=== PATIENT | male | born 1955 | race Caucasian/White ===

== ENCOUNTER 2019-02-20 15:25 | Inpatient (IN) | payer BC ==
[2019-02-20] MEDS ORDERED: IPRATROPIUM BROM 0.5MG/2.5ML ONE (15:32)
[2019-02-20] MEDS ORDERED: METHYLPREDNISOLONE 125 MG INJ ONE (15:32)
[2019-02-20] MEDS ORDERED: ALBUTEROL 2.5 MG/3 ML NEB SOL ONE (15:32)
--- NOTE | 2019-02-20 16:09 | RAD REPORT ---
EXAM DESCRIPTION: RAD - Abdomen Acute Series - 02/20/2019 4:01 pm CLINICAL HISTORY: ABD PAIN COMPARISON: No comparisons FINDINGS: Multiple poorly defined airspace opacities in the left lung noted suspicious for pneumonia /aspiration. The right lung is clear. The heart is normal in size. No subdiaphragmatic free air seen. No evidence bowel obstruction. No pathologic calcifications. No ag gressive marrow lesion. IMPRESSION: Several poorly defined airspace opacities in the left lung likely represent aspiration p neumonia.
[2019-02-20 16:14] LABS: Absolute Lymphocytes (CBC) 1.5 K/uL (0.7-4.9); Basophils % 0.2 % (0-1.3); Hematocrit 52.5 % (39.6-49.0); Lymphocytes % 8.4 % (15.3-44.8); MPV 9.8 fL (7.6-11.3); RBC Red Blood Cell Count 5.64 M/uL (4.33-5.43)
--- NOTE | 2019-02-20 16:25 | RAD REPORT ---
EXAM DESCRIPTION: CT - Angio Aorta For Dissection - 02/20/2019 4:12 pm CLINICAL HISTORY: Chest pain radiating to the back. DYSPNEA COMPARISON: No comparisons TECHNIQUE: CT angiography of the aorta was performed with MIPs. All CT scans are performed using dose optimization technique as appropriate and may include automated exposure control or mA/KV adjustment according to patient size. FINDINGS: A left aortic arch is present with normal branching pattern of the great vessels.No acute aortic finding is seen such as aneurysm, penetrating ulcer or dissection. The celiac axis, SMA, ABRAHAM and renal arteries demonstrate mild ostial plaquing but are patent. No evidence of pulmonary embolism. Patchy airspace opacities are present in the left lung most compatible with pneumonia, possibly relat ed to recent aspiration. The liver demonstrates no focal mass or biliary dilatation.The spleen, pancreas, adrenal glands and k idneys are within normal limits for arterial phase imaging. No bowel obstruction, free fluid or abscess.Sigmoid diverticulosis coli without diverticulitis.No pat hologic enlarged lymphadenopathy identified. No fracture or worrisome bone lesion seen. IMPRESSION: No acute aortic finding is demonstrated. Moderately severe left lung aspiration pneumonia.
[2019-02-20] MEDS ORDERED: CEFEPIME 1 GM/100 ML BAG IV ONE (16:28)
[2019-02-20 16:32] LABS: Blood Morphology Comment NOT SEEN (NOT SEEN); Platelet Estimate ADEQ; Urine White Blood Cell Casts OK
[2019-02-20] MEDS ORDERED: NA CHLORIDE 0.9% 2,000 ML ONE (16:36)
[2019-02-20 16:43] LABS: Arterial Blood Carboxyhemoglob 0.6 % (0-1.5); Blood Gas Oxyhemoglobin 97.9 % (94-97)
[2019-02-20] MEDS ORDERED: ACETAMINOPHEN 650MG/RECT SUPP PR ONE (16:43)
[2019-02-20] MEDS ORDERED: ACETAMINOPHEN 325 MG/SUPP PR ONE (16:44)
[2019-02-20 16:49] LABS: ALT/SGPT 31 U/L (12-78); AST/SGOT 28 U/L (15-37); Albumin 4.2 g/dL (3.4-5.0); Alkaline Phosphatase 77 U/L (45-117); BUN Blood Urea Nitrogen 18 mg/dL (7-18); Bicarbonate 27 mmol/L (21-32); Bilirubin Direct 0.1 mg/dL (0-0.2); Bilirubin Total 0.5 mg/dL (0.2-1.0); CKMB Creatine Kinase MB 1.7 ng/mL (0.3-3.6); Creatine Phosphokinase 106 U/L (39-308); Glucose Level 145 mg/dL (74-106); Lipase 64 U/L (73-393); Potassium 4.2 mmol/L (3.5-5.1); Sodium Level 139 mmol/L (136-145); Troponin (Emerg Dept Use Only) < 0.02 ng/mL (0.0-0.045)
[2019-02-20 16:58] LABS: Protime INR 1.01
[2019-02-20] MEDS ORDERED: VANCOMYCIN 2 GM in NA CHLORIDE 0.9% 500 ML IVPB ONE (17:00)
--- NOTE | 2019-02-20 17:15 | EDPHYS ---
Physician Documentation [facility] Name: Andrew Vallejo Age: 63 yrs Sex: Male : 1955 Arrival Date: 02/20/2019 Time: 15:28 Bed 2 Private MD: ED Physician Reji Ames HPI: 02/20 17:07 This 63 yrs old Male presents to ER via Wheelchair with complaints of jr8 Breathing Difficulty, Vomiting. 17:07 The patient has shortness of breath at rest. Onset: The symptoms/episode began/occurred jr8 acutely, today. Duration: The symptoms are continuous. The patient's shortness of breath is aggravated by light activity, talking, walking. Associated signs and symptoms: Pertinent positives: non-productive cough. Severity of symptoms: At their worst the symptoms were severe in the emergency department the symptoms are unchanged. The patient has not experienced similar symptoms in the past. The patient has been recently seen by a physician:. Patient stated that he had colonoscopy today. Stated that they told him that he aspirated while being intubated. Stated that since then has been dramatically getting worse. Patient came in hypoxic with peripheral cyanosis and perioral cyanosis with audible wheezing . Historical: - Allergies: 15:52 No Known Allergies; iw - PMHx: 15:52 Hypertension; Hyperlipidemia; iw - PSHx: 15:52 None; iw - Immunization history:: Adult Immunizations unknown. - Ebola Screening: : Patient negative for fever greater than or equal to 101.5 degrees Fahrenheit, and additional compatible Ebola Virus Disease symptoms Patient denies exposure to infectious person Patient denies travel to an Ebola-affected area in the 21 days before illness onset No symptoms or risks identified at this time. - Social history:: Smoking status: unknown. ROS: 17:07 Eyes: Negative for injury, pain, redness, and discharge, ENT: Negative for injury, jr8 pain, and discharge, Neck: Negative for injury, pain, and swelling, Cardiovascular: Negative for chest pain, palpitations, and edema, Abdomen/GI: Negative for abdominal pain, nausea, vomiting, diarrhea, and constipation, Back: Negative for injury and pain, MS/Extremity: Negative for injury and deformity, Skin: Negative for injury, rash, and discoloration, Neuro: Negative for headache, weakness, numbness, tingling, and seizure. 17:07 Respiratory: Positive for cough, dyspnea on exertion, shortness of breath, wheezing. Exam: 17:07 Eyes: Pupils equal round and reactive to light, extra-ocular motions intact. Lids and jr8 lashes normal. Conjunctiva and sclera are non-icteric and not injected. Cornea within normal limits. Periorbital areas with no swelling, redness, or edema. ENT: Nares patent. No nasal discharge, no septal abnormalities noted. Tympanic membranes are normal and external auditory canals are clear. Oropharynx with no redness, swelling, or masses, exudates, or evidence of obstruction, uvula midline. Mucous membranes moist. Neck: Trachea midline, no thyromegaly or masses palpated, and no cervical lymphadenopathy. Supple, full range of motion without nuchal rigidity, or vertebral point tenderness. No Meningismus. Abdomen/GI: Soft, non-tender, with normal bowel sounds. No distension or tympany. No guarding or rebound. No evidence of tenderness throughout. Back: No spinal tenderness. No costovertebral tenderness. Full range of motion. Skin: Warm, dry with normal turgor. Normal color with no rashes, no lesions, and no evidence of cellulitis. MS/ Extremity: Pulses equal, no cyanosis. Neurovascular intact. Full, normal range of motion. Neuro: Awake and alert, GCS 15, oriented to person, place, time, and situation. Cranial nerves II-XII grossly intact. Motor strength 5/5 in all extremities. Sensory grossly intact. Cerebellar exam normal. Normal gait. 17:07 Cardiovascular: Rate: tachycardic, Rhythm: regular, Pulses: Pulses are 2+ in right radial artery and left radial artery. Heart sounds: normal, normal S1and S2, no S3 or S4, no murmur, no rub, no gallop, Edema: is not appreciated. 17:07 Respiratory: moderate respiratory distress is noted, Respirations: labored breathing, tachypnea, Breath sounds: wheezing: expiratory that is moderate, is heard diffusely. Vital Signs: 15:45 BP 171 / 88; Pulse 136; Resp 36 S; Temp 99(A); Pulse Ox 87% on R/A; Weight 74.84 kg (R);iw 16:17 BP 146 / 74; Pulse 134; Resp 35 S; Pulse Ox 100% on Nebulizer Mask; iw 16:30 BP 143 / 83; Pulse 136; Resp 28; Pulse Ox 100% on BiPAP; jl7 16:41 Temp 103.5(R); ss 17:22 BP 125 / 86; Pulse 136; Resp 25 S; Pulse Ox 100% on BiPAP; iw 18:14 BP 128 / 80; Pulse 122; Resp 25 S; Temp 100.7(TE); Pulse Ox 95% on 5 lpm NC; Pain 0/10; iw 20:00 BP 101 / 53; Pulse 81; Resp 20 S; Pulse Ox 100% on 5 lpm NC; Pain 0/10; jd3 MDM: 15:51 Patient medically screened. jr8 17:05 Antibiotic administration: Vanc Cefepime . Data reviewed: vital signs, nurses notes, jr8 lab test result(s), EKG, radiologic studies, CT scan, plain films. Data interpreted: Pulse oximetry: on room air is 87 %. Interpretation: hypoxia. Counseling: I had a detailed discussion with the patient and/or guardian regarding: the historical points, exam findings, and any diagnostic results supporting the discharge/admit diagnosis, lab results, radiology results, the need for further work-up and treatment in the hospital. ED course: Dr. Motta consulted for admission and will see patient in ED . 02/20 15:46 Order name: ABG; Complete Time: 16:49 [facility] 02/20 15:46 Order name: Basic Metabolic Panel [facility] 02/20 15:46 Order name: Blood Culture Adult (2) [facility] 02/20 15:46 Order name: CBC with Diff; Complete Time: 16:43 [facility] 02/20 15:46 Order name: Ckmb; Complete Time: 16:50 [facility] 02/20 15:46 Order name: CPK; Complete Time: 16:50 [facility] 02/20 15:46 Order name: Lactate; Complete Time: 17:14 [facility] 02/20 15:46 Order name: LFT's; Complete Time: 16:50 [facility] 02/20 15:46 Order name: Lipase; Complete Time: 16:50 [facility] 02/20 15:46 Order name: Procalcitonin; Complete Time: 17:33 [facility] 02/20 15:46 Order name: Protime (+inr); Complete Time: 17:14 [facility] 02/20 15:46 Order name: Ptt, Activated; Complete Time: 17:14 7 02/20 15:46 Order name: Troponin (emerg Dept Use Only); Complete Time: 16:50 7 02/20 15:46 Order name: Urine Microscopic Only 7 02/20 15:51 Order name: CT Aorta for Dissection; Complete Time: 16:43 7 02/20 15:51 Order name: Basic Metabolic Panel; Complete Time: 16:50 EDMS 02/20 15:51 Order name: Blood Culture EDFL 02/20 15:52 Order name: XRAY Abdomen Acute Series; Complete Time: 16:25 [facility] 02/20 16:00 Order name: BNP; Complete Time: 16:43 [facility] 02/20 16:07 Order name: Glucose, Ancillary Testing; Complete Time: 16:09 EDMS 02/20 16:33 Order name: CBC Smear Scan; Complete Time: 16:43 EDMS 02/20 20:01 Order name: Lactate Sepsis 2 HR Follow-up EDFL 02/20 15:46 Order name: Accucheck; Complete Time: 15:57 7 02/20 15:46 Order name: Cardiac monitoring; Complete Time: 15:57 7 02/20 15:46 Order name: EKG - Nurse/Tech; Complete Time: 16:20 7 02/20 15:46 Order name: IV Saline Lock - Large Bore; Complete Time: 16:20 7 02/20 15:46 Order name: Labs collected and sent; Complete Time: 16:20 7 02/20 15:46 Order name: O2 Per Protocol; Complete Time: 16:20 [facility] 02/20 15:46 Order name: O2 Sat Monitoring; Complete Time: 16:43 jl7 Administered Medications: 15:35 Drug: Albuterol - atroVENT (3:1) (2.5 mg - 0.5 mg) 3 ml Route: Nebulizer; iw 18:21 Follow up: Response: No adverse reaction; Marked relief of symptoms iw 15:47 Drug: SOLU-Medrol 125 mg Route: IVP; Site: right wrist; iw 18:21 Follow up: Response: Marked relief of symptoms iw 16:35 Drug: NS 0.9% (30 ml/kg) 30 ml/kg Route: IV; Rate: bolus; Site: left jugular; ss 20:07 Follow up: Response: No adverse reaction; IV Status: Completed infusion jd3 16:35 Drug: Cefepime 1 grams Route: IVPB; Rate: 200 ml/hr; Infused Over: 30 mins; Site: right ss wrist; 17:05 Follow up: IV Status: Completed infusion iw 16:37 Drug: vancoMYCIN 2 grams Route: IVPB; Rate: calculated rate; Site: left jugular; ss 20:06 Follow up: Response: No adverse reaction; IV Status: Completed infusion jd3 16:51 Drug: Tylenol Suppository 1000 mg Route: VA; jl7 18:21 Follow up: Response: Temperature is decreased iw 17:35 Drug: Clindamycin 600 mg Route: IVPB; Infused Over: 30 mins; Site: right wrist; iw 18:05 Follow up: IV Status: Completed infusion iw Point of Care Testing: Blood Glucose: 15:56 Blood Glucose: 119 mg/dL; iw Ranges: Critical Glucose Levels:Adult <50 mg/dl or >400 mg/dl <40 mg/dl or >180 mg/dl Disposition: 17:12 Critical Care:. jr8 02/21 09:02 Co-signature as Attending Physician, Reji Ames MD I agree with the assessment and ps1 plan of care. PA/C[employer]'s history reviewed, patient interviewed, and examined. Attestation: The patient's history, exam findings, diagnostics, and a summary of any interventions or procedures was reviewed in detail with Cole AGUIRRE. Disposition: 02/20/19 17:14 Hospitalization ordered by Sb Motta for Inpatient Admission. Preliminary diagnosis are Acute respiratory failure with hypercapnia, Severe sepsis without septic shock, Aspiration Pneumonia . - Bed requested for Intensive Care Unit. - Status is Inpatient Admission. jd3 - Condition is Fair. - Problem is new. - Symptoms have improved. UTI on Admission? No Critical care time excluding procedures: 02/20 17:12 Critical care time: Bedside Care: 20 minutes, Consultation: 10 minutes, Family jr8 Intervention: 10 minutes. Total time: 40 minutes Signatures: Dispatcher [employer] EDDenia Bradley Irene, RN Ana Talley RN RN ss Roszak, Josh, PA PA jr8 Delmy Lucio RN RN jl7 Davies, Jonathon, RN RN jd3 Singer, Phillip, MD MD ps1 Corrections: (The following items were deleted from the chart) 16:00 15:53 Chest Single View+RAD.RAD.BRZ ordered. EDMS EDMS 18:43 17:14 Hospitalization Ordered by Sb Motta for Inpatient Admission. Preliminary bd diagnosis is Acute respiratory failure with hypercapnia; Severe sepsis without septic shock; Aspiration Pneumonia . Bed requested for Intensive Care Unit. Status is Inpatient Admission. Condition is Fair. Problem is new. Symptoms have improved. UTI on Admission? No. jr8 20:23 18:43 02/20/2019 17:14 Hospitalization Ordered by Sb Motta for Inpatient jd3 Admission. Preliminary diagnosis is Acute respiratory failure with hypercapnia; Severe sepsis without septic shock; Aspiration Pneumonia . Bed requested for Intensive Care Unit. Status is Inpatient Admission. Condition is Fair. Problem is new. Symptoms have improved. UTI on Admission? No. bd
--- NOTE | 2019-02-20 17:15 | ER ---
Nurse's Notes [facility] Name: Andrew Vallejo Age: 63 yrs Sex: Male : 1955 Arrival Date: 02/20/2019 Time: 15:28 Bed 2 Private MD: Diagnosis: Acute respiratory failure with hypercapnia;Severe sepsis without septic shock;Aspiration Pneumonia Presentation: 02/20 15:35 Presenting complaint: Patient states: SOB s/p colonoscopy this morning with Dr. Josue, iw pt then stood up and vomited large amount of clear liquid, pt states he was told he aspirated during the procedure, pt arrives to ER extremely SOB, RT called to bed 2 for Bipap,pt skin appears mottled. 15:49 Transition of care: patient was not received from another setting of care. Onset of iw symptoms was February 20, 2019. Risk Assessment: Do you want to hurt yourself or someone else? Patient reports no desire to harm self or others. Initial Sepsis Screen: Does the patient meet any 2 criteria? RR > 20 per min. HR > 90 bpm. Does the patient have a suspected source of infection? Yes: Other: SOB. Care prior to arrival: None. 15:49 Method Of Arrival: Wheelchair iw 15:49 Acuity: EBENEZER 1 iw Triage Assessment: 20:06 Respiratory: Onset: The symptoms/episode began/occurred just prior to arrival, the jd3 patient has mild shortness of breath. Historical: - Allergies: 15:52 No Known Allergies; iw - PMHx: 15:52 Hypertension; Hyperlipidemia; iw - PSHx: 15:52 None; iw - Immunization history:: Adult Immunizations unknown. - Ebola Screening: : Patient negative for fever greater than or equal to 101.5 degrees Fahrenheit, and additional compatible Ebola Virus Disease symptoms Patient denies exposure to infectious person Patient denies travel to an Ebola-affected area in the 21 days before illness onset No symptoms or risks identified at this time. - Social history:: Smoking status: unknown. Screenin:59 Abuse screen: Denies threats or abuse. Denies injuries from another. Nutritional iw screening: No deficits noted. Tuberculosis screening: No symptoms or risk factors identified. Fall Risk IV access (20 points). 18:15 Patient has been NPO before screening. The patient is alert, able to follow commands. jl7 The patient does not exhibit slurred or garbled speech The patient is not exhibiting difficulty speaking. The patient does not exhibit difficulty understanding words. The patient is able to swallow own secretions with no drooling or need for suction. Patient tolerated one teaspoon of water. No drooling, immediate coughing, gurgling, or clearing of the throat was noted. The patient tolerated 90mL of water. No drooling, immediate coughing, gurgling, or clearing of the throat was noted. The patient passed the bedside swallow screening. Oral medications may be given as ordered. Contact Physician for further diet orders. Provider notified of bedside swallow screening results: Sb Motta. Assessment: 15:40 General: Appears distressed, uncomfortable, ill, Behavior is cooperative, anxious. iw Neuro: Level of Consciousness is awake, alert, obeys commands, Oriented to person, place, time, situation, Moves all extremities. Cardiovascular: Rhythm is sinus tachycardia. Respiratory: Airway is patent Respiratory effort is labored, with nasal flaring, pursed lip, using tripod position, Respiratory pattern is symmetrical, tachypnea Breath sounds are diminished bilaterally. GI: Abdomen is non-distended, Reports vomiting. Derm: Skin is intact, Skin is mottled. Musculoskeletal: Range of motion: intact in all extremities. 15:58 Reassessment: Pt to CT VIA stretcher, on monitor with JAILENE Brock Spoke with Staff ss member at GI center who reports that patient was given Propofol during procedure during sedation, and afterwards given Augmentin for prevention of aspiration pneumonia. 16:23 Reassessment: pt now on BiPAP, still tachypneic and tachycardic at this time, 100% on iw Bipap, at bedside, skin color has improved, pink, warm. 18:15 Reassessment: Patient appears in no apparent distress at this time. Patient and/or iw family updated on plan of care and expected duration. Pain level reassessed. Patient is alert, oriented x 3, equal unlabored respirations, skin warm/dry/pink. pt taken off of BiPAP by Dr. Motta, placed on NC at 5 L/min, SpO2 at 95%, pt pink, warm dry, tqkt=432/7 temporal , pt states he's feeling better, remains at bedside. 19:30 General: Appears in no apparent distress. comfortable, Behavior is calm, cooperative, jd3 appropriate for age. 19:30 Pain: Denies pain. Neuro: Level of Consciousness is awake, alert, obeys commands, jd3 Oriented to person, place, time, situation. Cardiovascular: Denies chest pain, Capillary refill < 3 seconds Patient's skin is warm and dry. Respiratory: Airway is patent Respiratory effort is even, unlabored, Respiratory pattern is regular, symmetrical. GI: No signs and/or symptoms were reported involving the gastrointestinal system. : No signs and/or symptoms were reported regarding the genitourinary system. EENT: No signs and/or symptoms were reported regarding the EENT system. Derm: Skin is intact, Skin is dry, Skin is normal, Skin temperature is warm. Musculoskeletal: Circulation, motion, and sensation intact. Range of motion: intact in all extremities. 19:31 Reassessment: repeat lactate sent. ak1 Vital Signs: 15:45 BP 171 / 88; Pulse 136; Resp 36 S; Temp 99(A); Pulse Ox 87% on R/A; Weight 74.84 kg (R);iw 16:17 BP 146 / 74; Pulse 134; Resp 35 S; Pulse Ox 100% on Nebulizer Mask; iw 16:30 BP 143 / 83; Pulse 136; Resp 28; Pulse Ox 100% on BiPAP; jl7 16:41 Temp 103.5(R); ss 17:22 BP 125 / 86; Pulse 136; Resp 25 S; Pulse Ox 100% on BiPAP; iw 18:14 BP 128 / 80; Pulse 122; Resp 25 S; Temp 100.7(TE); Pulse Ox 95% on 5 lpm NC; Pain 0/10; iw 20:00 BP 101 / 53; Pulse 81; Resp 20 S; Pulse Ox 100% on 5 lpm NC; Pain 0/10; jd3 ED Course: 15:28 Patient arrived in ED. mr 15:35 Patient has correct armband on for positive identification. Placed in gown. Bed in low jl7 position. Call light in reach. Side rails up X2. 15:35 monitor car operator on. Pulse ox on. NIBP on. jl7 15:40 Missed attempt(s): 20 gauge in right antecubital area. iw 15:45 Arm band placed on right wrist. jl7 15:47 Inserted saline lock: 18 gauge in right EJ, using aseptic technique. Blood collected. iw IV inserted by TIMOTHY Galvan. 15:47 Inserted saline lock: 22 gauge in right wrist, using aseptic technique. iw 15:50 Triage completed. iw 15:51 Cole Anne PA is PHCP. jr8 15:51 Reji Ames MD is Attending Physician. jr8 15:56 Justa Osei, JAILENE is Primary Nurse. iw 16:02 XRAY Abdomen Acute Series In Process Unspecified. EDMS 16:11 CT completed. Patient tolerated procedure well. Patient moved to CT. Patient moved back or from CT. 16:12 CT Aorta for Dissection In Process Unspecified. EDMS 17:13 Sb Motta is Hospitalizing Provider. jr8 20:05 No provider procedures requiring assistance completed. Patient admitted, IV remains in jd3 place. Administered Medications: 15:35 Drug: Albuterol - atroVENT (3:1) (2.5 mg - 0.5 mg) 3 ml Route: Nebulizer; iw 18:21 Follow up: Response: No adverse reaction; Marked relief of symptoms iw 15:47 Drug: SOLU-Medrol 125 mg Route: IVP; Site: right wrist; iw 18:21 Follow up: Response: Marked relief of symptoms iw 16:35 Drug: NS 0.9% (30 ml/kg) 30 ml/kg Route: IV; Rate: bolus; Site: left jugular; ss 20:07 Follow up: Response: No adverse reaction; IV Status: Completed infusion jd3 16:35 Drug: Cefepime 1 grams Route: IVPB; Rate: 200 ml/hr; Infused Over: 30 mins; Site: right ss wrist; 17:05 Follow up: IV Status: Completed infusion iw 16:37 Drug: vancoMYCIN 2 grams Route: IVPB; Rate: calculated rate; Site: left jugular; ss 20:06 Follow up: Response: No adverse reaction; IV Status: Completed infusion jd3 16:51 Drug: Tylenol Suppository 1000 mg Route: AR; jl7 18:21 Follow up: Response: Temperature is decreased iw 17:35 Drug: Clindamycin 600 mg Route: IVPB; Infused Over: 30 mins; Site: right wrist; iw 18:05 Follow up: IV Status: Completed infusion iw Point of Care Testing: Blood Glucose: 15:56 Blood Glucose: 119 mg/dL; iw Ranges: Outcome: 17:14 Decision to Hospitalize by Provider. jr8 20:05 Admitted to ICU accompanied by nurse, via stretcher, room 2, with oxygen, on monitor, jd3 with chart, Report called to Tasha DENT 20:05 Condition: stable 20:05 Instructed on the need for admit, Demonstrated understanding of instructions. 20:23 Patient left the ED. jd3 Signatures: Dispatcher [employer] EDAL Andreina Chen Justa Osei, RN RN iw Ana Webber, RN RN ss Cole Anne PA PA jr8 Brittani Meek RN RN ak1 Jorge Smiley Jahala RN RN jl7 Zev Aponte RN RN jd3 Corrections: (The following items were deleted from the chart) 16:00 15:45 BP 171 / 88; Pulse 136bpm; Resp 36bpm; Spontaneous; Pulse Ox 87% RA; Temp 99F iw Axillary; jl7 16:23 15:45 BP 171 / 88; Pulse 136bpm; Resp 36bpm; Spontaneous; Pulse Ox 87% RA; Temp 99F iw Axillary; 83.91 kg Reported; iw 16:24 16:23 Reassessment: pt now on BiPAP, still tachypneic and tachycardic at this time, iw 100% on Bipap, at bedside iw 18:15 15:45 BP 171 / 88; Pulse 136bpm; Resp 36bpm; Spontaneous; Pulse Ox 87% RA; Temp 99F iw Axillary; 65.77 kg Measured; iw
[2019-02-20] MEDS ORDERED: CLINDAMYCIN 600MG/D5W 600 MG/50 ML BAG IV ONE (17:30)
--- NOTE | 2019-02-20 18:00 | P.HP ---
Certification for Inpatient Patient admitted to: Inpatient With expected LOS: >2 Midnights Practitioner: I am a practitioner with admitting privileges, knowledge of patient current condition, hospital course, and medical plan of care. Services: Services provided to patient in accordance with Admission requirements found in Title 42 Section 412.3 of the Code of Federal Regulations Patient History Date of Service: 02/23/19 Reason for admission: Shortness of breath, fever and chills. History of Present Illness: 63-year-old gentleman with a history of hypertension and hyperlipidemia presented to the emergency department due to a complaint of shortness of breath , cough, fever and chills. Patient had a screening colonoscopy done this morning. He was noted to have aspirated his secretions during the procedure. Patient stated he was monitored after the procedure and later discharged home with Augmentin. Patient stated he developed fever, chills and rigors and became very short of breath. He presented to the emergency department where patient was noted to be hypoxic on room air. He was febrile with temperature up to 103 in the ED. Blood work demonstrated severe leukocytosis, patient was tachycardic and lactic acid markedly elevated. CT chest demonstrated opacities in the left lung suggestive of aspiration pneumonia. He meets criteria for sepsis. Patient was on BiPAP therapy during my examination. Arterial blood gas on the BiPAP demonstrated mild CO2 retention and PaO2 of 170. He is currently tolerating oxygen by nasal cannula at 5 L per min. Patient is admitted for further management of aspiration pneumonia. Allergies No Known Allergies Allergy (Verified 02/20/19 21:06) Home Medications: Lisinopril 10 mg PO DAILY 02/20/19 Multivit-Mins/Iron/Folic/Lycop [Centrum Men's Tablet] 1 tab PO DAILY 02/20/19 Pravastatin Sodium [Pravachol] 20 mg PO DAILY 02/20/19 Amox/Clavulanate [Augmentin 875-125 Tab] 1 each PO BID #14 tab 02/21/19 Fluticasone/Salmeterol [Advair 250-50 Diskus] 1 each IH BID #60 blst.w.dev 02/21 - Past Medical/Surgical History Diabetic: No -: Hypertension -: Hyperlipidemia Past Surgical History: Patient denies surgical history - Family History Mother -: Cancer - Social History Smoking Status: Never smoker Alcohol use: Yes CD- Drugs: No Review of Systems Other: General: No unintentional weight loss. Eyes: No eye discharge, CVS: No chest pain, no palpitation, no lightheadedness. GI: No abdominal pain, no nausea no vomit, no constipation, no diarrhea. Genitourinary: No dysuria, no urinary frequency, no incontinence, no hematuria. Musculoskeletal: No joint pains, or joint swelling, no gait instability. Neurology: No headache, no asymmetric, weakness, no problem with swallowing. Except as documented, all other systems reviewed and negative. Physical Examination - Physical Exam General: Alert, In no apparent distress, Oriented x3 HEENT: PERRLA, Mucous membr. moist/pink, Sclerae nonicteric Neck: Supple, JVD not distended Respiratory: Normal air movement, Crackles/rales (Left lung), Expiratory wheezes (Mild scattered wheezes) Cardiovascular: No edema, Normal pulses, Normal S1 S2, Other (Tachycardic) Capillary refill: <2 Seconds Gastrointestinal: Normal bowel sounds, Soft and benign, Non-distended, No tenderness Musculoskeletal: No swelling Integumentary: No rashes Neurological: Normal speech, Normal strength at 5/5 x4 extr - Studies Laboratory Data (last 24 hrs) 02/20/19 16:37: PT 11.9, INR 1.01, APTT 18.6 L 02/20/19 15:45: WBC 18.4 H, Hgb 17.0, Hct 52.5 H, Plt Count 256 02/20/19 15:45: Sodium 139, Potassium 4.2, BUN 18, Creatinine 1.47 H, Glucose 145 H, Total Bilirubin 0.5, AST 28, ALT 31, Alkaline Phosphatase 77, Lipase 64 L Assessment and Plan - Problems (Diagnosis) (1) Sepsis Status: Acute (2) Aspiration pneumonia Status: Acute Qualifiers: Laterality: left (3) Acute respiratory failure with hypoxemia Status: Acute (4) Hypertension Status: Acute - Plan Admit to ICU Continue oxygen by nasal cannula. Intermittent BiPAP as needed Treats with IV Zosyn and levaquin Start IV methylprednisolone Titrate oxygen Chest physiotherapy Hold antihypertensives for now Bedside swallow evaluation after which patient can be started on a diet if he tolerate it. - Advance Directives Does patient have a Living Will: No Does patient have a Durable POA for Healthcare: No
[2019-02-20] MEDS ORDERED: NA CHLORIDE 0.9% 1,000 ML IV SCH (20:50)
[2019-02-20] MEDS ORDERED: ONDANSETRON 4 MG/2 ML VIAL IV PRN (20:50)
[2019-02-20] MEDS ORDERED: ACETAMINOPHEN 500 MG TAB PO PRN (20:50)
[2019-02-20] MEDS: ALBUTEROL 2.5 MG/3 ML NEB SOL NEB SCH (20:55)
[2019-02-20] MEDS: IPRATROPIUM BROM 0.5MG/2.5ML NEB SCH (20:55)
[2019-02-20 21:05] VITALS: BMI 28.5
[2019-02-20] MEDS ORDERED: Levofloxacin 750mg IV 750 MG/150 ML BAG IV SCH (22:00)
[2019-02-20] MEDS ORDERED: PIPERACIL/TAZO 3.375 GM VIAL IV ONE (23:48)
[2019-02-20] MEDS ORDERED: NA CHLORIDE 0.9% 100 ML ONE (23:48)
[2019-02-21] MEDS: METHYLPREDNISOLONE 40 MG INJ IV SCH ×2 (00:04→08:08)
[2019-02-21] MEDS: IPRATROPIUM BROM 0.5MG/2.5ML NEB SCH ×3 (02:05→14:00)
[2019-02-21] MEDS: ALBUTEROL 2.5 MG/3 ML NEB SOL NEB SCH ×3 (02:05→14:00)
[2019-02-21 05:10] LABS: Absolute Lymphocytes (CBC) 0.3 K/uL (0.7-4.9); Basophils % 0.2 % (0-1.3); Lymphocytes % 1.4 % (15.3-44.8); MPV 9.4 fL (7.6-11.3); RBC Red Blood Cell Count 4.44 M/uL (4.33-5.43)
[2019-02-21 05:34] LABS: Magnesium 1.9 mg/dL (1.8-2.4); Phosphorus 2.7 mg/dL (2.5-4.9); Potassium 4.5 mmol/L (3.5-5.1)
[2019-02-21] MEDS ORDERED: PIPERACIL/TAZO 3.375 GM VIAL IV ONE (05:44)
[2019-02-21] MEDS ORDERED: NA CHLORIDE 0.9% 100 ML ONE (05:45)
[2019-02-21] MEDS: PIPER/TAZO/NS 3.375gm 3.375 GM/100 ML BAG IVPB SCH ×2 (06:00)
[2019-02-21 06:58] LABS: Blood Morphology Comment NOT SEEN (NOT SEEN); Platelet Estimate ADEQ
[2019-02-21 07:57] VITALS: O2SAT 93
--- NOTE | 2019-02-21 08:36 | P.CNS ---
Date of Consult: 02/21/19 Reason for Consult: Aspiration pneumonia Chief Complaint: Shortness of breath, fever and chills. History of Present Illness: Patient is 63 years of age he recently had a colonoscopy done patient was discharged an on the way into his home started having fever chills shortness of breath admitted to the hospital with aspiration pneumonia he is currently doing much better at some wheezing former smoker quit 20 years ago no prior history of pulmonary complaints Allergies No Known Allergies Allergy (Verified 02/20/19 21:06) Home Medications: Lisinopril 10 mg PO DAILY 02/20/19 Multivit-Mins/Iron/Folic/Lycop [Centrum Men's Tablet] 1 tab PO DAILY 02/20/19 Pravastatin Sodium [Pravachol] 20 mg PO DAILY 02/20/19 - Past Medical/Surgical History Diabetic: No -: Hypertension -: Hyperlipidemia -: colonoscopy -: kidney stones removed - Family History Mother Medical History: Cancer - Social History Smoking Status: Unknown if ever smoked Alcohol use: Yes CD- Drugs: No Caffeine use: Yes Place of Residence: Home Review of Systems 10-point ROS is otherwise unremarkable Physical Examination Temp Pulse Resp BP Pulse Ox 98.3 F 88 22 H 107/78 94 02/21/19 04:00 02/21/19 07:00 02/21/19 07:00 02/21/19 07:00 02/21/19 07:00 General: Alert, Oriented x3 Neck: 2+ carotid pulse no bruit Respiratory: Expiratory wheezes Cardiovascular: No edema, Regular rate/rhythm, Normal S1 S2 Laboratory Data (last 24 hrs) 02/20/19 16:37: PT 11.9, INR 1.01, APTT 18.6 L 02/20/19 15:45: WBC 18.4 H, Hgb 17.0, Hct 52.5 H, Plt Count 256 02/20/19 15:45: Sodium 139, Potassium 4.2, BUN 18, Creatinine 1.47 H, Glucose 145 H, Total Bilirubin 0.5, AST 28, ALT 31, Alkaline Phosphatase 77, Lipase 64 L - Problems (1) Aspiration pneumonia Current Visit: Yes Status: Acute Plan: Patient is 63 years of age admitted with a presumed aspiration pneumonia this happened shortly after his colonoscopy started having fever chills patient has infiltrates on the left side is doing much better oxygenation satisfactory vital signs stable was treated with steroids broad-spectrum antibiotics chemistries reviewed white count elevated I suspect it is from the steroids. Patient can be discharged home on Augmentin and Advair follow-up with me in 2 weeks Dc IV fluids in IV steroids Qualifiers: Laterality: left
[2019-02-21] MEDS ORDERED: ENOXAPARIN 40 MG/0.4 ML SQ SCH (09:00)
[2019-02-21] MEDS ORDERED: PIPER/TAZO/NS 3.375gm 3.375 GM/100 ML BAG IVPB SCH (11:00)
--- NOTE | 2019-02-21 14:07 | P.DS ---
Admission Date: 02/20/19 Discharge Date: 02/21/19 Disposition: ROUTINE DISCHARGE Discharge Condition: GOOD Reason for Admission: Shortness of breath, fever and chills. Consultations: Pulmonology-Dr. Garrett Procedures: None. - Problems (1) Sepsis Current Visit: Yes Status: Acute (2) Aspiration pneumonia Current Visit: Yes Status: Acute Qualifiers: Laterality: left (3) Acute respiratory failure with hypoxemia Current Visit: Yes Status: Acute (4) Hypertension Current Visit: Yes Status: Acute Brief History of Present Illness: 63-year-old gentleman with a history of hypertension and hyperlipidemia presented to the emergency department due to her complaint of shortness of breath, cough, fever and chills. Patient had a screening colonoscopy done this morning. He was noted to have aspirated his secretions during the procedure. Patient stated he was monitored after the procedure and later discharged home with Augmentin. Patient stated he later developed fever, chills and rigors and became very short of breath. He presented to the emergency department where patient was noted to be hypoxic on room air. He was febrile with temperature up to 103 in the ED. Blood work demonstrated severe leukocytosis, patient was tachycardic and lactic acid markedly elevated. CT chest demonstrated opacities in the left lung suggestive of aspiration pneumonia. He met criteria for sepsis. Patient was on BiPAP therapy during my examination. Arterial blood gas on the BiPAP demonstrated mild CO2 retention and PaO2 of 170. He was later tolerating oxygen by nasal cannula at 5 L per min. Patient was admitted for further management of aspiration pneumonia. Hospital Course: Patient admitted to ICU for close monitoring. He was treated with IV Levaquin and Zosyn, IV Solu-Medrol and scheduled bronchodilators. He was evaluated by pulmonary-Dr. Garrett. His respiratory condition improved quickly within a 24 hr period. Patient was not requiring oxygen today, stated the cough has resolved. He denied any chest pain, afebrile since hospitalization. Noted his white cell count was up to 22,000 which could be secondary to steroid induced leukocytosis. Patient states he feels much better and desires to go home. He ambulated without any shortness of breath or desaturation. He is deemed clinically stable for discharge. He is discharged with oral Augmentin and Advair inhaler her pulmonary recommendation with a follow up with Dr. Garrett within 2 weeks. Vital Signs/Physical Exam: Temp Pulse Resp BP Pulse Ox 98.5 F 109 H 24 H 135/79 93 02/21/19 08:00 02/21/19 09:00 02/21/19 09:00 02/21/19 09:00 02/21/19 09:00 General: Alert, In no apparent distress, Oriented x3 HEENT: Mucous membr. moist/pink, Sclerae nonicteric Neck: Supple, JVD not distended Respiratory: Clear to auscultation bilaterally, Normal air movement Cardiovascular: No edema, Regular rate/rhythm, Normal S1 S2, No murmurs Capillary refill: <2 Seconds Gastrointestinal: Normal bowel sounds, Soft and benign, Non-distended, No tenderness Musculoskeletal: No swelling Integumentary: No rashes, No erythema Neurological: Normal speech, Normal strength at 5/5 x4 extr Laboratory Data at Discharge: WBC 22.0 K/uL (4.3-10.9) H* D 02/21/19 04:35 Hgb 13.6 g/dL (13.6-17.9) D 02/21/19 04:35 Hct 41.0 % (39.6-49.0) D 02/21/19 04:35 Plt Count 188 K/uL (152-406) D 02/21/19 04:35 PT 11.9 SECONDS (9.5-12.5) 02/20/19 16:37 INR 1.01 02/20/19 16:37 APTT 18.6 SECONDS (24.3-36.9) L 02/20/19 16:37 Sodium 142 mmol/L (136-145) 02/21/19 04:35 Potassium 4.5 mmol/L (3.5-5.1) 02/21/19 04:35 BUN 15 mg/dL (7-18) 02/21/19 04:35 Creatinine 1.14 mg/dL (0.55-1.3) 02/21/19 04:35 Glucose 230 mg/dL (74-106) H 02/21/19 04:35 Phosphorus 2.7 mg/dL (2.5-4.9) 02/21/19 04:35 Magnesium 1.9 mg/dL (1.8-2.4) 02/21/19 04:35 Total Bilirubin 0.5 mg/dL (0.2-1.0) 02/20/19 15:45 AST 28 U/L (15-37) 02/20/19 15:45 ALT 31 U/L (12-78) 02/20/19 15:45 Alkaline Phosphatase 77 U/L (45-117) 02/20/19 15:45 Triglycerides 42 mg/dL (<150) 02/21/19 04:35 Cholesterol 175 mg/dL (<200) 02/21/19 04:35 HDL Cholesterol 80 mg/dL (40-60) H 02/21/19 04:35 Cholesterol/HDL Ratio 2.19 02/21/19 04:35 Lipase 64 U/L (73-393) L 02/20/19 15:45 Home Medications: Lisinopril 10 mg PO DAILY 02/20/19 Multivit-Mins/Iron/Folic/Lycop [Centrum Men's Tablet] 1 tab PO DAILY 02/20/19 Pravastatin Sodium [Pravachol] 20 mg PO DAILY 02/20/19 Amox/Clavulanate [Augmentin 875-125 Tab] 1 each PO BID #14 tab 02/21/19 Fluticasone/Salmeterol [Advair 250-50 Diskus] 1 each IH BID #60 blst.w.dev 02/21 New Medications: Amox/Clavulanate [Augmentin 875-125 Tab] 1 each PO BID #14 tab Fluticasone/Salmeterol [Advair 250-50 Diskus] 1 each IH BID #60 blst.w.dev Diet: AHA Activity: Ad odette Followup: Terrance Garrett MD [ACTIVE - CAN ADMIT] - 1-2 Weeks Time spent managing pt's care (in minutes): 34
[2019-02-21 15:38] VITALS: BP 122/74; TEMP 98.3
--- NOTE | 2019-02-21 23:00 | EKG ---
Test Date: 2019-02-20 Test Time: 16:15:02 Finish Mender: CHRISTOPHER MEASUREMENT RESULTS: Intervals: Rate: 131 NV: 136 QRSD: 90 QT: 310 QTc: 457 Tiline: P: 67 NV: 136 QRS: 81 T: 65 INTERPRETIVE STATEMENTS: Sinus tachycardia Otherwise normal ECG No previous ECG available for comparison Electronically Signed On 02-21-19 22:57:52 [employer] by Ankit Dasilva
== END 2019-02-21 15:10 | disposition home or self-care (01) | DRG 871 ==
LOC: ER 15:25 → ERHOLD 18:08 → 3RD-ICU 20:06
PROVIDERS: ADMIT Internal Medicine; ATTEND Internal Medicine
PROC: 5A09357 Assistance with Respiratory Ventilation, Less than 24 Consecutive Hours, Continuous Positive Airway Pressure (ICD-10-PCS; principal; 2019-02-20)
DX: A41.9 Sepsis, unspecified organism (principal); J69.0 Pneumonitis due to inhalation of food and vomit; J96.01 Acute respiratory failure with hypoxia; I10 Essential (primary) hypertension; E78.5 Hyperlipidemia, unspecified
CPT/HCPCS: 36415; 71275; 74022; 74175; 80048; 80061; 80076; 82550; 82553; 82805; 82947; 83605; 83690; 83735; 83880; 84100; 84145; 84484; 85025; 85610; 85730; 87040; 93005; 94640; 94660; 94760; 99291; J0692; J1650; J2543; J2920; J2930; J7030; J7040; Q9967